=== PATIENT | male | born 1975 | race Caucasian/White ===

== ENCOUNTER 2021-05-27 02:16 | Emergency (ER) | payer BC ==
[2021-05-27 02:29] VITALS: BP 127/80; PULSE 79; RESP 18; TEMP 98.1
[2021-05-27] MEDS ORDERED: ORPHENADRINE 30 MG/ML 2 ML VIAL IM STA (03:20)
[2021-05-27] MEDS ORDERED: KETOROLAC 15 MG/ML 1 ML VIAL IM STA (03:20)
--- NOTE | 2021-05-27 03:57 | ED ---
Back Pain HPI - General Chief Complaint: Back Pain/Injury Stated Complaint: Back Pain Time Seen by Provider: 05/27/21 02:44 Source: patient Limitations: no limitations - Related Data Previous Rx's Medication Instructions Recorded Ibuprofen 800 mg PO TID #20 tablet 05/27/21 Methocarbamol [Robaxin-750] 750 mg PO TID PRN #30 tablet 05/27/21 Allergies Allergy/AdvReac Type Severity Reaction Status Date / Time No Known Allergies Allergy Verified 05/27/21 02:29 Review of Systems ROS Statement: Those systems with pertinent positive or pertinent negative responses have been documented in the HPI. ROS Other: All systems not noted in ROS Statement are negative. Past Medical History Past Medical History: Hyperlipidemia History of Any Multi-Drug Resistant Organisms: None Reported Past Surgical History: Adenoidectomy Past Psychological History: Anxiety, Depression Smoking Status: Never smoker Past Alcohol Use History: Occasional Past Drug Use History: None Reported General Exam Limitations: no limitations Course Vital Signs 05/27/21 02:26 Temperature 98.1 F Pulse Rate 79 Respiratory 18 Rate Blood Pressure 127/80 O2 Sat by Pulse 99 Oximetry Disposition Clinical Impression: Strain of lumbar region Disposition: HOME SELF-CARE Condition: Good Instructions (If sedation given, give patient instructions): Acute Low Back Pain (ED) Prescriptions: Ibuprofen 800 mg PO TID #20 tablet Methocarbamol [Robaxin-750] 750 mg PO TID PRN #30 tablet PRN Reason: pain Is patient prescribed a controlled substance at d/c from ED?: No Referrals: None,Stated [Primary Care Provider] - 1-2 days
== END 2021-05-27 04:37 | disposition home or self-care (01) ==
LOC: EC 02:16
DX: S39.012A Strain of muscle, fascia and tendon of lower back, initial encounter (principal); E78.5 Hyperlipidemia, unspecified; F32.9 Major depressive disorder, single episode, unspecified; F41.9 Anxiety disorder, unspecified; X58.XXXA Exposure to other specified factors, initial encounter
CPT/HCPCS: 99283; 96372 ×2; J2360; J1885